=== PATIENT | female | born 1940 | race Caucasian/White ===

== ENCOUNTER 2018-01-12 06:03 | Inpatient (IN) | payer MEDICARE, OTHER ==
[2018-01-12] MEDS ORDERED: Acetaminophen 500 MG Tab PO ONE (06:45)
[2018-01-12] MEDS ORDERED: Succinylcholine 200 MG/10 ML MDV ONE (07:09)
[2018-01-12] MEDS ORDERED: Neostigmine Methylsulfate 1 MG/ML 5 ML Syringe ONE (07:09)
[2018-01-12] MEDS ORDERED: Dexamethasone 4 MG/ML SDV ONE (07:09)
[2018-01-12] MEDS ORDERED: Rocuronium 50 MG/5 ML Vial ONE (07:09)
[2018-01-12] MEDS ORDERED: Glycopyrrolate 0.2 MG/ML 5 ML MDV ONE (07:09)
[2018-01-12] MEDS ORDERED: Propofol 200 MG/20 ML SDV ONE (07:09)
[2018-01-12] MEDS ORDERED: Ondansetron 4 MG/2 ML SDV ONE (07:09)
[2018-01-12] MEDS ORDERED: fentaNYL 250 MCG/5 ML SDV ONE (07:09)
[2018-01-12] MEDS ORDERED: HYDROmorphone/Normal Saline 15 MG/30 ML PCA IV PRN ×2 (07:23→08:54)
[2018-01-12] MEDS ORDERED: Naloxone 0.4 MG/ML SDV IVPUSH PRN (07:23)
[2018-01-12] MEDS ORDERED: Naloxone 0.4 MG/ML SDV IV PRN (07:27)
[2018-01-12] MEDS ORDERED: Dextrose 5%-Lactated Ringers 1,000 ML IV SCH ×2 (07:30→12:15)
[2018-01-12] MEDS ORDERED: ceFAZolin 1 GM in Premix Bag 1 BAG IV ONE (08:00)
[2018-01-12] MEDS ORDERED: ceFAZolin 1 GM in Sodium Chloride 0.9% 50 ML IV ONE (08:00)
[2018-01-12] MEDS ORDERED: Hydrocortisone Sodium Succinate 100 MG/2 ML SDV IVPUSH ONE (08:00)
[2018-01-12] MEDS ORDERED: Methimazole 5 MG Tab PO ONE (09:00)
[2018-01-12] MEDS ORDERED: Ondansetron 4 MG/2 ML SDV IVPUSH PRN (12:13)
[2018-01-12] MEDS: Pantoprazole 40 MG Tab.CR PO SCH (15:54)
[2018-01-12] MEDS: Dextrose 5%-Lactated Ringers 1,000 ML IV SCH (15:55)
[2018-01-12] MEDS: Hydrocortisone Sodium Succinate 100 MG/2 ML SDV IV SCH (15:55)
[2018-01-12] MEDS: ceFAZolin 1 GM in Premix Bag 1 BAG IV SCH (15:56)
[2018-01-12] MEDS ORDERED: Benzocaine 20% Top Spray 56 GM Bottle TOP SCH (19:30)
[2018-01-12] MEDS: Diltiazem 120 MG Cap.CD PO SCH (20:15)
[2018-01-12] MEDS: Metoprolol Tartrate 50 MG Tab PO SCH (20:15)
[2018-01-12] MEDS ORDERED: Phenol/Sodium Phenolate Spray 180 ML Bottle PO SCH (20:15)
[2018-01-12] MEDS: Benzocaine/Cetylpyridinium/Menthol Lozenge MUCMEM SCH ×2 (21:31→22:35)
[2018-01-13] MEDS: Dextrose 5%-Lactated Ringers 1,000 ML IV SCH ×3 (00:04→21:20)
[2018-01-13] MEDS: ceFAZolin 1 GM in Premix Bag 1 BAG IV SCH ×2 (00:05→08:20)
[2018-01-13] MEDS: Hydrocortisone Sodium Succinate 100 MG/2 ML SDV IV SCH ×4 (00:06→23:53)
[2018-01-13] MEDS ORDERED: HYDROmorphone 2 MG Tab PO PRN (07:48)
[2018-01-13] MEDS: Metoprolol Tartrate 50 MG Tab PO SCH ×2 (08:22→21:15)
[2018-01-13] MEDS: Aspirin 81 MG Tab.EC PO SCH (08:22)
[2018-01-13] MEDS: Apixaban 5 MG Tab PO SCH ×2 (08:23→21:14)
[2018-01-13] MEDS: Magnesium Sulfate/Water 2 GM in Premix Bag 1 BAG IV SCH ×3 (09:45→21:15)
--- NOTE | 2018-01-13 09:53 | PN ---
DATE OF SERVICE: 01/13/2018 SUBJECTIVE: Barbara is postop day #1. She states her pain is controlled. Vital signs have been stable. She has been up ambulating. REVIEW OF SYSTEMS: Remainder of review of systems negative for any pertinent positives and negatives. OBJECTIVE: GENERAL: Barbara Garcia is a pleasant 77-year-old female. VITAL SIGNS: TPR is 98.5, 61, 18, and blood pressure 124/49. HEENT: Negative. NECK: Dressings dry and intact. Incision looks good. Her voice is strong. HEART: Regular rate and rhythm. LUNGS: Clear. ABDOMEN: Nondistended. EXTREMITIES: Without peripheral edema. ASSESSMENT: Left thyroid lobectomy and right subtotal thyroid lobectomy for diffuse toxic goiter. Date of surgery, 01/12/2018. PLAN: 1. Regular diet. 2. Tylenol 640 mg q.4 hours p.r.n. pain. 3. Dilaudid 2 mg 1 to 2 p.o. every 4 hours p.r.n. pain. 4. Magnesium 2 grams IV q.6 hours x72 hours. 5. Discontinue [employer] and continuous pulse ox, and telemetry. 6. We will evaluate p.r.n. or in a.m. Barbi Bolden PA-C /[id number]
[2018-01-13] MEDS: Pantoprazole 40 MG Tab.CR PO SCH (17:04)
[2018-01-13] MEDS: Diltiazem 120 MG Cap.CD PO SCH (21:14)
[2018-01-14] MEDS: Magnesium Sulfate/Water 2 GM in Premix Bag 1 BAG IV SCH ×4 (04:14→21:03)
[2018-01-14] MEDS ORDERED: Sodium Chloride 0.9% 10 ML Syringe IV PRN (07:38)
[2018-01-14] MEDS: Metoprolol Tartrate 50 MG Tab PO SCH ×3 (08:07→20:52)
[2018-01-14] MEDS: Hydrocortisone Sodium Succinate 100 MG/2 ML SDV IV SCH ×3 (08:07→23:56)
[2018-01-14] MEDS: Apixaban 5 MG Tab PO SCH ×2 (08:07→21:03)
[2018-01-14] MEDS: Aspirin 81 MG Tab.EC PO SCH (08:07)
[2018-01-14] MEDS: Calcium Carbonate 500 MG Tab.Chew PO SCH ×3 (10:34→21:03)
--- NOTE | 2018-01-14 13:39 | PCM.CONS ---
H&P History of Present Illness - General Date of Service: 01/14/18 Admit Problem/Dx: Admission Diagnosis/Problem Admission Diagnosis/Problem Thyroidectomy Source of Information: Patient, Family, RN History Limitations: Reports: No Limitations - History of Present Illness Initial Comments - Free Text/Narative: Barbara had surgery 2 days ago for a subtotal thyroidectomy. I was asked to see her today regarding atrial fibrillation with rapid ventricular response. She noted sudden onset of palpitations, headache, neck stiffness and anxiety while she was eating lunch today. Her vital signs were checked and she was noted to have an irregular tachycardic pulse. She feels some slight chest tightness but does not feel short of breath. She does not endorse chest pain. She has a history of paroxysmal atrial fibrillation and this feels like previous episodes. She had otherwise been doing well following her thyroid surgery 2 days ago. She has minimal pain in her neck. She has been up and walking around. She has not had any fevers. She does report mild lower extremity edema. Headache Pain Score (Numeric/FACES): 4 - Related Data Allergies/Adverse Reactions: Allergies Allergy/AdvReac Type Severity Reaction Status Date / Time Penicillins Allergy Rash Verified 01/09/18 08:38 Home Medications: Home Meds Apixaban [Eliquis] 5 mg PO BID 01/09/18 [History] Calcium Carbonate 1,500 mg PO DAILY 01/09/18 [History] Diltiazem [Cardizem] 180 mg PO DAILY 01/09/18 [History] Magnesium 30 mg PO DAILY 01/09/18 [History] Metoprolol Tartrate [Lopressor] 50 mg PO BID 01/09/18 [History] Multivitamin with Minerals [Multiple Vitamin] 1 tab PO DAILY 01/09/18 [History] Omeprazole Magnesium [Prilosec Otc] 20 mg PO DAILY 01/09/18 [History] Vitamin B Complex [B Complex] 1 tab PO DAILY 01/09/18 [History] Diltiazem HCl [Cardizem] 120 mg PO ASDIRECTED PRN 01/12/18 [History] Past Medical History HEENT History: Reports: Hard of Hearing, Impaired Vision Cardiovascular History: Reports: Afib, Hypertension Respiratory History: Reports: Sleep Apnea Gastrointestinal History: Reports: GERD Genitourinary History: Reports: None LOADER History: Reports: Musculoskeletal History: Reports: Arthritis, Neck Pain, Chronic Neurological History: Reports: CVA, Headaches, Chronic, Vertigo Endocrine/Metabolic History: Reports: Hyperthyroidism - Infectious Disease History Infectious Disease History: Reports: Chicken Pox, Measles, Mumps - Past Surgical History HEENT Surgical History: Reports: None Cardiovascular Surgical History: Reports: Cardiac Ablation Respiratory Surgical History: Reports: None GI Surgical History: Reports: Appendectomy, Colonoscopy Female Surgical History: Reports: Breast Biopsy, Tubal Ligation Endocrine Surgical History: Reports: None Neurological Surgical History: Reports: None Musculoskeletal Surgical History: Reports: Knee Replacement Dermatological Surgical History: Reports: None Social & Family History - Family History Family Medical History: Noncontributory - Tobacco Use Smoking Status *Q: Never Smoker Second Hand Smoke Exposure: No - Caffeine Use Caffeine Use: Reports: None - Alcohol Use Alcohol Use History: No - Recreational Drug Use Recreational Drug Use: No H&P Review of Systems - Review of Systems: Review Of Systems: See Below Free Text/Narrative: A complete 12 point review of systems was obtained. Pertinent positives and negatives are noted in the history of present illness. All other systems were reviewed and were negative except as noted. Exam - Exam Exam: See Below - Vital Signs Vital Signs: Last Vital Signs Temp 36.4 C 01/14/18 11:06 Pulse 130 H 01/14/18 13:00 Resp 18 01/14/18 13:00 BP 140/80 01/14/18 13:00 Pulse Ox 95 01/14/18 13:00 Weight: 103.022 kg - Exam Quality Assessment: No: Supplemental Oxygen General: Alert, Oriented, Cooperative, Mild Distress HEENT: Conjunctiva Clear, Mucosa Moist & Pentress. No: Scleral Icterus Neck: Supple, Trachea Midline Lungs: Clear to Auscultation, Normal Respiratory Effort Cardiovascular: Irregular Rhythm, Tachycardia. No: Systolic Murmur GI/Abdominal Exam: Normal Bowel Sounds, Soft, No Distention Extremities: Pedal Edema (mild pitting bilateral edema to lower 1/3 of the leo) . No: Increased Warmth Skin: Warm, Dry Neuro Extensive - Mental Status: Alert, Oriented x3, Nl Response to Commands Neuro Extensive - Motor, Sensory, Reflexes: CN II-XII Intact. No: Dysarthria, Abnormal Motor Psychiatric: Alert, Anxious - Patient Data Lab Results Last 24 hrs: Laboratory Results - last 24 hr 01/14/18 Range/Units 04:37 Sodium 144 (140-148) mmol/L Potassium 3.7 (3.6-5.2) mmol/L Chloride 110 H (100-108) mmol/L Carbon Dioxide 25 (21-32) mmol/L Anion Gap 12.7 (5.0-14.0) mmol/L BUN 19 H (7-18) mg/dL Creatinine 0.8 (0.6-1.0) mg/dL Est Cr Clr Drug Dosing 59.64 mL/min Estimated GFR (MDRD) > 60 (>60) Glucose 151 H (74-106) mg/dL Calcium 7.0 L (8.5-10.1) mg/dL Phosphorus 4.5 (2.5-4.9) mg/dL Magnesium 2.2 D (1.8-2.4) mg/dL Result Diagrams: 01/12/18 07:00 01/14/18 04:37 Consult PN Assessment/Plan POD#: 2 Procedures: Procedures BLOOD TYPING SEROLOGIC ABO (03/21/14) BLOOD TYPING SEROLOGIC RH(D) (03/21/14) RBC ANTIBODY SCREEN (03/21/14) ROUTINE VENIPUNCTURE (03/21/14) US EXAM OF HEAD AND NECK (01/03/18) (1) Paroxysmal atrial fibrillation with RVR SNOMED Code(s): 792688490, 211805828890540 Code(s): I48.0 - PAROXYSMAL ATRIAL FIBRILLATION Current Visit: Yes (2) Status post total thyroidectomy SNOMED Code(s): 724464440, 417575819 Code(s): E89.0 - POSTPROCEDURAL HYPOTHYROIDISM Current Visit: Yes Problem List Initiated/Reviewed/Updated: Yes My Orders Last 24 Hours: My Active Orders 01/14/18 13:35 Transfer Patient (Change bed) [ADT] Routine 01/14/18 13:36 Diltiazem 10 mg IVPUSH ONETIME ONE 01/14/18 13:37 Vital Signs [RC] Q1H 01/14/18 13:45 Diltiazem 125MG in D5W @ 5 MG/HR(125ml) Diltiazem 125 mg Dextrose 5% in Water 100 ml IV TITRATE Plan: ASSESSMENT AND PLAN Paroxysmal atrial fibrillation with rapid ventricular response - symptoms include palpitations, chest tightness, anxiety and neck tightness. Similar to previous episodes. She does have a history of atrial fibrillation and is systemically anticoagulated. Blood pressure stable at this time. She does have a history of bradycardia with diltiazem titration. electrolytes are acceptable. -Transfer to the intensive care unit and initiate diltiazem infusion after diltiazem bolus -Discontinue long-acting diltiazem for now until medications can be titrated -cardiac monitoring -Repeat electrolytes in the morning -Transition back to oral medications once we achieve better rate control or she has converted back to sinus rhythm Status post subtotal thyroidectomy for toxic multinodular goiter - doing well from a surgical standpoint with minimal pain. Mark Kovacs MD Requesting Provider: Dr Andrade Date Consult Requested: 01/14/18 Reason for Consult: afib with RVR Patient History Reviewed: Yes Admission H&P Reviewed: Yes Notified Requestor: No Time Spent (in minutes): 50
[2018-01-14] MEDS ORDERED: Diltiazem 25 MG/5 ML SDV IVPUSH ONE (13:45)
[2018-01-14] MEDS: Pantoprazole 40 MG Tab.CR PO SCH (16:09)
[2018-01-14] MEDS: LORazepam 0.5 MG Tab PO PRN (16:29)
[2018-01-14] MEDS: Acetaminophen 160 MG Tab,Disintegrating PO PRN (19:21)
[2018-01-15] MEDS ORDERED: Bisacodyl 10 MG Supp RECTAL ONE (02:01)
[2018-01-15] MEDS: Magnesium Sulfate/Water 2 GM in Premix Bag 1 BAG IV SCH ×4 (02:31→21:18)
[2018-01-15] MEDS: Calcium Carbonate 500 MG Tab.Chew PO SCH ×4 (05:03→21:18)
[2018-01-15] MEDS: LORazepam 0.5 MG Tab PO PRN (06:20)
[2018-01-15] MEDS: Potassium Acetate 20 MEQ, Lidocaine 1% 2 ML in Sodium Chloride 0.9% 100 ML IV SCH ×4 (08:05→17:16)
[2018-01-15] MEDS: Hydrocortisone Sodium Succinate 100 MG/2 ML SDV IV SCH ×3 (08:08→23:30)
[2018-01-15] MEDS: Aspirin 81 MG Tab.EC PO SCH (08:09)
[2018-01-15] MEDS: Apixaban 5 MG Tab PO SCH ×2 (08:09→20:18)
[2018-01-15] MEDS: Metoprolol Tartrate 50 MG Tab PO SCH ×2 (08:10→20:18)
--- NOTE | 2018-01-15 09:17 | PCM.CONSN ---
- General Info Date of Service: 01/15/18 Functional Status: Reports: Pain Controlled, Tolerating Diet - Review of Systems Cardiovascular: Denies: Chest Pain Systems Review Comment:: Overnight the patient had difficulty with the sensation of needing to have a bowel movement and was successful with a suppository. She converted to normal sinus rhythm with the diltiazem infusion and this has been discontinued. She feels a little tired today but otherwise feels back to her usual self. She does not have any chest pain or tightness. Potassium and calcium were both noted to be low this morning. - Patient Data Vitals - Most Recent: Last Vital Signs Temp 36.8 C 01/15/18 07:00 Pulse 59 L 01/15/18 08:10 Resp 18 01/15/18 07:00 BP 119/43 L 01/15/18 08:10 Pulse Ox 95 01/15/18 07:00 Weight - Most Recent: 103.022 kg I&O - Last 24 Hours: Intake & Output 01/14/18 01/15/18 01/15/18 22:59 06:59 14:59 Intake Total 526 1060 Output Total 800 Balance -274 1060 Lab Results Last 24 Hours: Laboratory Results - last 24 hr 01/15/18 01/15/18 Range/Units 05:06 05:30 Sodium 142 (140-148) mmol/L Potassium 2.9 L* (3.6-5.2) mmol/L Chloride 107 (100-108) mmol/L Carbon Dioxide 24 (21-32) mmol/L Anion Gap 13.9 (5.0-14.0) mmol/L BUN 17 (7-18) mg/dL Creatinine 0.8 (0.6-1.0) mg/dL Est Cr Clr Drug Dosing 59.64 mL/min Estimated GFR (MDRD) > 60 (>60) Glucose 114 H (74-106) mg/dL Calcium 6.5 L* (8.5-10.1) mg/dL Phosphorus 4.6 (2.5-4.9) mg/dL Magnesium 2.8 H D (1.8-2.4) mg/dL NT-Pro-B Natriuret Pep 3456 H (5-450) pg/mL Med Orders - Current: Current Medications Acetaminophen (Tylenol Jr. Meltaways) 640 mg PO Q4H PRN PRN Reason: Pain Last Admin: 01/14/18 19:21 Dose: 640 mg Apixaban (Eliquis) 5 mg PO BID [facility] Last Admin: 01/15/18 08:09 Dose: 5 mg Aspirin (Halfprin) 81 mg PO DAILY [facility] Last Admin: 01/15/18 08:09 Dose: 81 mg Calcium Carbonate/Glycine (Tums) 2,000 mg PO QID [facility] Hydrocortisone Sodium Succinate (Solu-Cortef) 50 mg IV Q8H [facility] Last Admin: 01/15/18 08:08 Dose: 50 mg Hydromorphone HCl (Dilaudid) 2 - 4 mg PO Q4H PRN PRN Reason: Pain Magnesium Sulfate 2 gm/ Premix 50 mls @ 25 mls/hr IV Q6H [facility] Stop: 01/16/18 04:59 Last Admin: 01/15/18 08:11 Dose: 25 mls/hr Potassium Acetate 20 meq/Lidocaine HCl 2 ml/ Sodium Chloride 112 mls @ 56 mls/ hr IV Q2H [facility] Stop: 01/15/18 16:29 Last Admin: 01/15/18 08:05 Dose: 56 mls/hr Lorazepam (Ativan) 0.5 mg PO Q4H PRN PRN Reason: Anxiety Last Admin: 01/15/18 06:20 Dose: 0.5 mg Metoprolol Tartrate (Lopressor) 50 mg PO BID [facility] Last Admin: 01/15/18 08:10 Dose: 50 mg Ondansetron HCl (Zofran) 4 mg IVPUSH Q4H PRN PRN Reason: NAUSEA Pantoprazole Sodium (Protonix) 40 mg PO Q24H [facility] Last Admin: 01/14/18 16:09 Dose: 40 mg Senna/Docusate Sodium (Senna Plus) 1 tab PO DAILY [facility] Last Admin: 01/15/18 08:07 Dose: 1 tab Sodium Chloride (Saline Flush) 10 ml IV ASDIRECTED PRN PRN Reason: LINE MAINTENCE Discontinued Medications Acetaminophen (Tylenol Extra Strength) 1,000 mg PO ONETIME ONE Stop: 01/12/18 06:46 Last Admin: 01/12/18 07:14 Dose: 1,000 mg Benzocaine/Menthol (Cepacol Sore Throat) 1 lozenge MUCMEM Q1H [facility] Last Admin: 01/12/18 22:35 Dose: Not Given Bisacodyl (Dulcolax) 10 mg RECTAL ONETIME ONE Stop: 01/15/18 02:02 Last Admin: 01/15/18 02:14 Dose: 10 mg Calcium Carbonate/Glycine (Tums) 1,000 mg PO QID [facility] Last Admin: 01/15/18 05:03 Dose: 1,000 mg Dexamethasone (Dexamethasone) Confirm Administered Dose 4 mg .ROUTE .STK-MED ONE Stop: 01/12/18 07:10 Diltiazem HCl (Cardizem Cd) 120 mg PO BEDTIME [facility] Last Admin: 01/13/18 21:14 Dose: 120 mg Diltiazem HCl (Diltiazem) 10 mg IVPUSH ONETIME ONE Stop: 01/14/18 13:46 Last Admin: 01/14/18 14:12 Dose: 10 mg Fentanyl (Sublimaze) Confirm Administered Dose 250 mcg .ROUTE .STK-MED ONE Stop: 01/12/18 07:10 Glycopyrrolate (Robinul) Confirm Administered Dose 1 mg .ROUTE .STK-MED ONE Stop: 01/12/18 07:10 Hydrocortisone Sodium Succinate (Solu-Cortef) 150 mg IVPUSH ONETIME ONE Stop: 01/12/18 08:01 Last Admin: 01/12/18 08:32 Dose: 150 mg Hydromorphone HCl (Dilaudid [employer] 15 Mg In Ns 30 Ml) 0 mg IV ASDIRECTED PRN; Protocol PRN Reason: Pain Last Admin: 01/12/18 09:11 Dose: 0.2 mg Dextrose/Lactated Ringer's (Dextrose 5%-Lactated Ringers) 1,000 mls @ 100 mls/ hr IV ASDIRECTED [facility] Last Admin: 01/12/18 08:20 Dose: 100 mls/hr Cefazolin Sodium/Dextrose 1 gm (/ Premix) 50 mls @ 100 mls/hr IV ONETIME ONE Stop: 01/12/18 08:29 Last Admin: 01/12/18 08:55 Dose: 100 mls/hr Dextrose/Lactated Ringer's (Dextrose 5%-Lactated Ringers) 1,000 mls @ 100 mls/ hr IV ASDIRECTED [facility] Last Admin: 01/13/18 21:20 Dose: 100 mls/hr Potassium Acetate 20 meq/ (Sodium Chloride) 110 mls @ 55 mls/hr IV Q2H [facility] Stop: 01/12/18 17:59 Last Admin: 01/12/18 15:56 Dose: 55 mls/hr Cefazolin Sodium/Dextrose 1 gm (/ Premix) 50 mls @ 100 mls/hr IV Q8H [facility] Stop: 01/13/18 08:29 Last Admin: 01/13/18 08:20 Dose: 100 mls/hr Diltiazem HCl 125 mg/ Dextrose (/Water) 125 mls @ 5 mls/hr IV TITRATE [facility]; Protocol Last Titration: 01/15/18 05:30 Dose: 0 mg/hr, 0 mls/hr Methimazole (Methimazole) 30 mg PO ONETIME ONE Stop: 01/12/18 09:01 Last Admin: 01/12/18 08:44 Dose: 30 mg Naloxone HCl (Narcan) 0.1 mg IV ASDIRECTED PRN PRN Reason: decreased respiratory rate Neostigmine Methylsulfate (Neostigmine) Confirm Administered Dose 5 mg .ROUTE .STK-MED ONE Stop: 01/12/18 07:10 Ondansetron HCl (Zofran) Confirm Administered Dose 4 mg .ROUTE .STK-MED ONE Stop: 01/12/18 07:10 Propofol (Diprivan 20 Ml) Confirm Administered Dose 200 mg .ROUTE .STK-MED ONE Stop: 01/12/18 07:10 Rocuronium [place] (Zemuron) Confirm Administered Dose 50 mg .ROUTE .STK-MED ONE Stop: 01/12/18 07:10 Succinylcholine Chloride (Quelicin) Confirm Administered Dose 200 mg .ROUTE .STK -MED ONE Stop: 01/12/18 07:10 - Exam Quality Assessment: No: Supplemental Oxygen General: Alert, Oriented, Cooperative, No Acute Distress Neck: Supple Lungs: Clear to Auscultation, Normal Respiratory Effort Cardiovascular: Regular Rate, Regular Rhythm, No Murmurs GI/Abdominal Exam: Soft, No Distention Extremities: Pedal Edema (mild pitting edema of both ankles). No: Increased Warmth Skin: Warm, Dry Psy/Mental Status: Alert, Normal Affect Consult PN Assessment/Plan POD#: 3 Procedures: Procedures BLOOD TYPING SEROLOGIC ABO (03/21/14) BLOOD TYPING SEROLOGIC RH(D) (03/21/14) RBC ANTIBODY SCREEN (03/21/14) ROUTINE VENIPUNCTURE (03/21/14) US EXAM OF HEAD AND NECK (01/03/18) (1) Paroxysmal atrial fibrillation with RVR SNOMED Code(s): 844331951, 501589952383673 Code(s): I48.0 - PAROXYSMAL ATRIAL FIBRILLATION Current Visit: Yes (2) Status post total thyroidectomy SNOMED Code(s): 194267461, 612577398 Code(s): E89.0 - POSTPROCEDURAL HYPOTHYROIDISM Current Visit: Yes Problem List Initiated/Reviewed/Updated: Yes My Orders Last 24 Hours: My Active Orders 01/14/18 13:35 Transfer Patient (Change bed) [ADT] Routine 01/14/18 13:37 Vital Signs [RC] Q4H 01/14/18 16:22 LORazepam [Ativan] 0.5 mg PO Q4H PRN 01/15/18 09:00 Docusate Sodium/Sennosides [Senna Plus] 1 tab PO DAILY 01/15/18 09:14 Transfer Patient (Change bed) [ADT] Routine 01/15/18 09:16 TAINA Hose [Antiembolic Hose] [OM.PC] Routine 01/15/18 09:30 Diltiazem IR [Cardizem] 30 mg PO Q6HR 01/15/18 21:00 Diltiazem [Cardizem] 180 mg PO BEDTIME Plan: ASSESSMENT AND PLAN Paroxysmal atrial fibrillation with rapid ventricular response - now back in sinus rhythm after diltiazem infusion. Planning to short acting throughout the day today before resuming her long-acting diltiazem this evening. Potassium is low and is being supplemented. She does have some mild lower extremity edema but I think her intravascular volume status appears appropriate. She will be resuming her long-acting diltiazem this evening. -Diltiazem 30 mg every 6 hours during the day today -Presumed diltiazem 180 mg this evening -cardiac monitoring -Optimize electrolytes -Continue beta cora -Continue systemic anticoagulation Status post subtotal thyroidectomy for toxic multinodular goiter - doing well from a surgical standpoint with minimal pain. Patient will be transferred out of the intensive care unit this morning. Assuming she remains in sinus rhythm and electrolytes are optimize she should be safe for discharge tomorrow. I don't believe we need to make any medication changes at the time of discharge. She can follow-up with her regular doctor early this week. Mark Kovacs MD
[2018-01-15] MEDS: Diltiazem IR 30 MG Tab PO SCH ×2 (09:34→15:09)
[2018-01-15] MEDS: Pantoprazole 40 MG Tab.CR PO SCH (16:42)
[2018-01-15] MEDS ORDERED: Magnesium Hydroxide 400 MG/5 ML Susp 30 ML Cup PO PRN (17:51)
[2018-01-15] MEDS ORDERED: DILTIAZEM 180 MG PO SCH (21:00)
[2018-01-15] MEDS ORDERED: Diltiazem 180 MG Cap.CD PO SCH (21:00)
[2018-01-16] MEDS: Magnesium Sulfate/Water 2 GM in Premix Bag 1 BAG IV SCH (02:00)
[2018-01-16] MEDS: Calcium Carbonate 500 MG Tab.Chew PO SCH ×4 (05:13→21:22)
[2018-01-16] MEDS: Hydrocortisone Sodium Succinate 100 MG/2 ML SDV IV SCH ×2 (08:07→16:47)
[2018-01-16] MEDS: Metoprolol Tartrate 50 MG Tab PO SCH ×2 (08:07→21:49)
[2018-01-16] MEDS: Aspirin 81 MG Tab.EC PO SCH (08:07)
[2018-01-16] MEDS: Apixaban 5 MG Tab PO SCH ×2 (08:08→20:54)
--- NOTE | 2018-01-16 08:11 | PN ---
DATE OF SERVICE: 01/14/2018 The patient has been afebrile with stable vital signs. Her calcium is down at 7.0 but she is not symptomatic with that. I think we will start her on some TUMS 2 tablets q.i.d.; otherwise, oral intake is good and we will saline lock her IV. Otherwise, continue the magnesium supplementation. Assuming the calcium is stabilized with the addition of the TUMS, we will likely have her discharged home tomorrow. Rinku Andrade MD /[id number]
--- NOTE | 2018-01-16 09:05 | PN ---
DATE OF SERVICE: 01/16/2018 SUBJECTIVE: Barbara is having some low-potassium symptoms with her hand on the side they are taking the blood pressure. Labs this morning revealed that her potassium is up to 3.9, calcium is 5.8, BNP is 1277, and vitamin D is 36.1 with normal being 30 to 100. Vital signs have been stable with a pulse of 65, blood pressure 152/80, and temp max is 99.3. Pain has been controlled. REVIEW OF SYSTEMS: Remainder of review of systems negative for any pertinent positives and negatives. OBJECTIVE: GENERAL: Barbara Garcia is a pleasant 77-year-old female. She is alert and orientated, sitting up in the chair. VITAL SIGNS: TPR is 99, 65, 18, and blood pressure 152/80. HEENT: Negative. NECK: Steri-Strips in place. Incision looks good. HEART: Regular rate and rhythm. LUNGS: Clear. ABDOMEN: Negative. EXTREMITIES: Without peripheral edema. ASSESSMENT: 1. 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 Date of surgery, 01/12/2018. Postoperative day #4. 2. Paroxysmal atrial fibrillation with rapid ventricular response. PLAN: 1. Increase diltiazem to 240 mg p.o. 2. Calcium citrate 500 mg q.6 hours. [facility] was called in regard to obtaining the calcium citrate. 3. Vitamin D 50,000 international units p.o. t.i.d. 4. Labs are already ordered and will be rechecked in a.m. 5. Good pulmonary toilet. 6. We will evaluate p.r.n. or in a.m. Barbi Bolden PA-C /[id number]
[2018-01-16] MEDS: Cholecalciferol (Vitamin D3) 50,000 Unit Cap PO SCH ×2 (14:43→20:54)
[2018-01-16] MEDS: Pantoprazole 40 MG Tab.CR PO SCH (16:48)
[2018-01-16] MEDS ORDERED: Calcium Gluconate 11 GM in Sodium Chloride 0.9% 1,000 ML IV ONE (19:35)
[2018-01-16] MEDS: Diltiazem 120 MG Cap.CD PO SCH (21:50)
[2018-01-17] MEDS: Hydrocortisone Sodium Succinate 100 MG/2 ML SDV IV SCH (00:47)
[2018-01-17] MEDS: LORazepam 0.5 MG Tab PO PRN (03:26)
[2018-01-17] MEDS: Calcium Carbonate 500 MG Tab.Chew PO SCH ×4 (06:12→21:57)
[2018-01-17] MEDS: Acetaminophen 160 MG Tab,Disintegrating PO PRN (06:12)
[2018-01-17] MEDS ORDERED: Furosemide 20 MG/2 ML VIAL IVPUSH ONE (07:10)
[2018-01-17] MEDS: Aspirin 81 MG Tab.EC PO SCH (08:23)
[2018-01-17] MEDS: predniSONE 1 MG Tab PO SCH (08:44)
[2018-01-17] MEDS: Metoprolol Tartrate 50 MG Tab PO SCH ×2 (08:45→21:58)
[2018-01-17] MEDS: Apixaban 5 MG Tab PO SCH ×2 (08:45→21:58)
[2018-01-17] MEDS: Hydrochlorothiazide 25 MG Tab PO SCH (08:45)
--- NOTE | 2018-01-17 10:13 | PN ---
DATE OF SERVICE: 01/17/2018 SUBJECTIVE: Barbara had symptomatic hypokalemia, last evening, calcium at 0400 hours was 5.8 and at 1600 hours was 6.3. This morning her calcium is 7.1. She was started on calcium gluconate IV at 50 mL per hour, and her symptoms did improve. This morning, she states she is feeling better. The BNP did elevate a little bit from 1277 to 1811. REVIEW OF SYSTEMS: Otherwise negative for any pertinent positives and negatives. OBJECTIVE: GENERAL: Barbara Garcia is a pleasant 77-year-old female. VITAL SIGNS: TPR is 98.2, 46, 16, and blood pressure is 149/68. HEENT: Negative. NECK: Supple. HEART: Regular rate and rhythm. LUNGS: Clear. NECK: Steri-Strips intact. Incision looks good. ABDOMEN: Soft and nontender. EXTREMITIES: Trace peripheral edema in upper and lower extremities. ASSESSMENT: 1. Hypokalemia. 2. Paroxysmal atrial fibrillation with rapid ventricular response, resolved. 3. 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 Date of surgery, 01/12/2018. PLAN: 1. Lasix 20 mg IV stat. 2. Vitamin D 50,000 p.o. daily. Discontinue t.i.d. dosing. 3. Calcium gluconate IV. Decrease dose to 25 mL per hour. Check calcium serum level at noon. Call Rinku Andrade MD, with results. 4. Check CMP, mag, phos, and BNP at 1700 hours. Call Rinku Andrade MD, with results. 5. Discontinue Solu-Medrol. 6. Prednisone 2 mg p.o. daily. 7. Start the Citracal t.i.d. It will be in today per Pharmacy. 8. Check CMP, CBC, mag, phos, and BNP in a.m. 9. Hydrochlorothiazide 25 mg p.o. daily. 10.We will evaluate p.r.n. or in a.m. Barbi Bolden PA-C /[id number]
[2018-01-17] MEDS: Cholecalciferol (Vitamin D3) 50,000 Unit Cap PO SCH (10:53)
[2018-01-17] MEDS: Calcium Citrate/Vitamin D3 315 MG-250 Unit Tab PO SCH ×4 (10:54→21:57)
[2018-01-17] MEDS ORDERED: SODIUM CHLORIDE 0.9% IV SCH ×4 (14:00)
[2018-01-17] MEDS ORDERED: CALCIUM GLUCONATE IV SCH ×4 (14:00)
[2018-01-17] MEDS: Pantoprazole 40 MG Tab.CR PO SCH (16:19)
[2018-01-17] MEDS: Magnesium Sulfate/Water 2 GM in Premix Bag 1 BAG IV SCH (18:54)
[2018-01-17] MEDS: Diltiazem 120 MG Cap.CD PO SCH (21:57)
[2018-01-18] MEDS: Magnesium Sulfate/Water 2 GM in Premix Bag 1 BAG IV SCH ×5 (00:50→23:30)
[2018-01-18] MEDS: Acetaminophen 160 MG Tab,Disintegrating PO PRN (03:31)
[2018-01-18] MEDS: LORazepam 0.5 MG Tab PO PRN (06:35)
[2018-01-18] MEDS: Calcium Carbonate 500 MG Tab.Chew PO SCH ×4 (06:36→20:33)
[2018-01-18] MEDS: predniSONE 1 MG Tab PO SCH (08:05)
[2018-01-18] MEDS: Calcium Citrate/Vitamin D3 315 MG-250 Unit Tab PO SCH ×2 (08:05→15:19)
[2018-01-18] MEDS: Aspirin 81 MG Tab.EC PO SCH (08:06)
[2018-01-18] MEDS: Hydrochlorothiazide 25 MG Tab PO SCH (08:06)
[2018-01-18] MEDS: Metoprolol Tartrate 50 MG Tab PO SCH (08:06)
[2018-01-18] MEDS: Apixaban 5 MG Tab PO SCH ×2 (08:06→20:33)
[2018-01-18] MEDS: Cholecalciferol (Vitamin D3) 50,000 Unit Cap PO SCH (08:10)
[2018-01-18] MEDS ORDERED: Furosemide 20 MG/2 ML VIAL IVPUSH ONE (08:30)
--- NOTE | 2018-01-18 08:57 | PN ---
DATE OF SERVICE: 01/18/2018 SUBJECTIVE: Barbara's calcium is 7.3 this morning. Her BNP is 1152. She is having some episodes, where she feels like she is going to pass out. Vital signs revealed a pulse of 43 to 58. Her blood pressure has been running 130 to 154/64 to 68. Pain is controlled. REVIEW OF SYSTEMS: Remainder of review of systems negative for any pertinent positives and negatives. OBJECTIVE: GENERAL: Barbara Garcia is a 77-year-old female. NECK: Incision looks good. Steri-Strips are on. It is healing well. Supple. HEENT: Negative. HEART: Regular rate and rhythm. LUNGS: Clear. ABDOMEN: Negative. EXTREMITIES: Revealed trace peripheral edema. ASSESSMENT: 1. Low calcium. 2. Hypokalemia. 3. Paroxysmal atrial fibrillation with rapid ventricular response, resolved. 4. Left thyroid lobectomy and right subtotal thyroid lobectomy for diffuse toxic ulcer. Date of surgery, 01/12/2018. 5. Microscopic papillary carcinoma. PLAN: 1. Check serum calcium level at 1700 hours. 2. Check CBC, CMP, mag, phos, and BNP at 0400 hours, on 01/19/2018. 3. Lasix 20 mg IV this a.m. 4. Decrease diltiazem (Cardizem) to 180 mg p.o. daily. 5. Check orthostatic sitting, standing, and lying blood pressures per protocol 4 times daily. 6. We will evaluate p.r.n. or in a.m. Barbi Bolden PA-C /[id number]
--- NOTE | 2018-01-18 12:29 | PN ---
DATE OF SERVICE: 01/15/2018 The patient developed atrial fibrillation with a rapid response yesterday along with some chest tightness. She was put on a diltiazem infusion and early this morning converted back to a sinus rhythm with some degree of bradycardia, which is her baseline. Otherwise, from a surgical standpoint, the patient is noted to be doing well. Incision is clean. Oral intake was around 1000 mL yesterday. Electrolytes show potassium to be quite low at 2.9 this morning. Her chloride is 107 and phosphate 4.6, while carbon dioxide is 24, for replacement. Otherwise, the diltiazem will be titrated back to some oral version, per Dr. Kovacs, over the next day or so. Rinku Andrade MD /[id number]
--- NOTE | 2018-01-18 14:03 | PCM.PN ---
- General Info Date of Service: 01/18/18 Functional Status: Reports: Pain Controlled - Review of Systems General: Reports: Weakness, Fatigue HEENT: Reports: No Symptoms Pulmonary: Reports: Shortness of Breath Cardiovascular: Reports: Palpitations, Dyspnea on Exertion Gastrointestinal: Reports: No Symptoms Genitourinary: Reports: No Symptoms Musculoskeletal: Reports: No Symptoms Skin: Reports: No Symptoms Neurological: Reports: Weakness Psychiatric: Reports: No Symptoms - Patient Data Vitals - Most Recent: Last Vital Signs Temp 99.2 F 01/18/18 11:26 Pulse 40 L 01/18/18 11:26 Resp 18 01/18/18 11:26 BP 130/64 01/18/18 08:06 Pulse Ox 93 L 01/18/18 11:26 Orthostatic Blood Pressure [ 141/64 Standing] Orthostatic Blood Pressure [ 135/57 Sitting] Orthostatic Blood Pressure [ 118/50 Supine] Weight - Most Recent: 227 lb 1.994 oz I&O - Last 24 Hours: Intake & Output 01/17/18 01/18/18 01/18/18 22:59 06:59 14:59 Intake Total 55 440 50 Output Total 900 1500 Balance 41 -506 -6077 Lab Results Last 24 Hours: Laboratory Results - last 24 hr 01/17/18 01/18/18 01/18/18 Range/Units 16:57 04:20 04:20 WBC 9.6 (4.5-11.0) K/uL RBC 3.77 (3.30-5.50) M/uL Hgb 11.1 L (12.0-15.0) g/dL Hct 32.7 L (36.0-48.0) % MCV 87 (80-98) fL MCH 29 (27-31) pg MCHC 34 (32-36) % Plt Count 162 (150-400) K/uL Sodium 141 139 L (140-148) mmol/L Potassium 3.6 3.7 (3.6-5.2) mmol/L Chloride 105 104 (100-108) mmol/L Carbon Dioxide 27 27 (21-32) mmol/L Anion Gap 8.7 11.7 (5.0-14.0) mmol/L BUN 16 15 (7-18) mg/dL Creatinine 1.0 0.8 (0.6-1.0) mg/dL Est Cr Clr Drug Dosing 47.71 59.64 mL/min Estimated GFR (MDRD) 54 L > 60 (>60) Glucose 97 89 (74-106) mg/dL Calcium 7.6 L 7.3 L (8.5-10.1) mg/dL Phosphorus 5.8 H 6.8 H (2.5-4.9) mg/dL Magnesium 1.7 L (1.8-2.4) mg/dL Total Bilirubin 0.8 0.7 (0.2-1.0) mg/dL AST 24 20 (15-37) U/L ALT 44 38 (12-78) U/L Alkaline Phosphatase 72 62 (46-116) U/L NT-Pro-B Natriuret Pep 1694 H 1152 H (5-450) pg/mL Total Protein 5.6 L 5.0 L (6.4-8.2) g/dL Albumin 2.6 L 2.3 L (3.4-5.0) g/dL Globulin 3.0 2.7 (2.3-3.5) g/dL Albumin/Globulin Ratio 0.9 L 0.9 L (1.2-2.2) Med Orders - Current: Current Medications Acetaminophen (Tylenol Jr. Meltaways) 640 mg PO Q4H PRN PRN Reason: Pain Last Admin: 01/18/18 03:31 Dose: 640 mg Apixaban (Eliquis) 5 mg PO BID [facility] Last Admin: 01/18/18 08:06 Dose: 5 mg Aspirin (Halfprin) 81 mg PO DAILY [facility] Last Admin: 01/18/18 08:06 Dose: 81 mg Calcium Carbonate/Glycine (Tums) 2,000 mg PO QID [facility] Last Admin: 01/18/18 11:03 Dose: 2,000 mg Calcium Citrate (Calcium Citrate + D) 1 tab PO TID [facility] Last Admin: 01/18/18 08:05 Dose: 1 tab Cholecalciferol (Vitamin D3) 50,000 unit PO DAILY [facility] Last Admin: 01/18/18 08:10 Dose: 50,000 unit Diltiazem HCl (Cardizem Cd) 180 mg PO BEDTIME [facility] Hydrochlorothiazide (Hydrochlorothiazide) 25 mg PO DAILY [facility] Last Admin: 01/18/18 08:06 Dose: 25 mg Hydromorphone HCl (Dilaudid) 2 - 4 mg PO Q4H PRN PRN Reason: Pain Magnesium Sulfate 2 gm/ Premix 50 mls @ 12.5 mls/hr IV Q6H [facility] Stop: 01/19/18 15:59 Last Admin: 01/18/18 11:03 Dose: 12.5 mls/hr Lorazepam (Ativan) 0.5 mg PO Q4H PRN PRN Reason: Anxiety Last Admin: 01/18/18 06:35 Dose: 0.5 mg Magnesium Hydroxide (Milk Of Magnesia) 30 ml PO BID PRN PRN Reason: Constipation Last Admin: 01/15/18 18:38 Dose: 30 ml Ondansetron HCl (Zofran) 4 mg IVPUSH Q4H PRN PRN Reason: NAUSEA Pantoprazole Sodium (Protonix) 40 mg PO Q24H [facility] Last Admin: 01/17/18 16:19 Dose: 40 mg Prednisone (Prednisone) 2 mg PO WITHBREAKFAST [facility] Last Admin: 01/18/18 08:05 Dose: 2 mg Senna/Docusate Sodium (Senna Plus) 1 tab PO DAILY [facility] Last Admin: 01/18/18 08:06 Dose: 1 tab Sodium Chloride (Saline Flush) 10 ml IV ASDIRECTED PRN PRN Reason: LINE MAINTENCE Discontinued Medications Acetaminophen (Tylenol Extra Strength) 1,000 mg PO ONETIME ONE Stop: 01/12/18 06:46 Last Admin: 01/12/18 07:14 Dose: 1,000 mg Benzocaine/Menthol (Cepacol Sore Throat) 1 lozenge MUCMEM Q1H [facility] Last Admin: 01/12/18 22:35 Dose: Not Given Bisacodyl (Dulcolax) 10 mg RECTAL ONETIME ONE Stop: 01/15/18 02:02 Last Admin: 01/15/18 02:14 Dose: 10 mg Calcium Carbonate/Glycine (Tums) 1,000 mg PO QID [facility] Last Admin: 01/15/18 05:03 Dose: 1,000 mg Cholecalciferol (Vitamin D3) 50,000 unit PO TID [facility] Last Admin: 01/16/18 20:54 Dose: 50,000 unit Dexamethasone (Dexamethasone) Confirm Administered Dose 4 mg .ROUTE .STK-MED ONE Stop: 01/12/18 07:10 Diltiazem HCl (Cardizem Cd) 120 mg PO BEDTIME [facility] Last Admin: 01/13/18 21:14 Dose: 120 mg Diltiazem HCl (Diltiazem) 10 mg IVPUSH ONETIME ONE Stop: 01/14/18 13:46 Last Admin: 01/14/18 14:12 Dose: 10 mg Diltiazem HCl (Cardizem) 30 mg PO Q6H [facility] Stop: 01/15/18 15:31 Last Admin: 01/15/18 15:09 Dose: 30 mg Diltiazem HCl (Cardizem Cd) 180 mg PO BEDTIME [facility] Last Admin: 01/15/18 20:18 Dose: 180 mg Diltiazem HCl (Cardizem Cd) 240 mg PO BEDTIME [facility] Last Admin: 01/17/18 21:57 Dose: 240 mg Fentanyl (Sublimaze) Confirm Administered Dose 250 mcg .ROUTE .STK-MED ONE Stop: 01/12/18 07:10 Furosemide (Lasix) 20 mg IVPUSH ONETIME ONE Stop: 01/17/18 07:11 Last Admin: 01/17/18 08:22 Dose: 20 mg Furosemide (Lasix) 20 mg IVPUSH ONETIME ONE Stop: 01/18/18 08:31 Last Admin: 01/18/18 08:55 Dose: 20 mg Glycopyrrolate (Robinul) Confirm Administered Dose 1 mg .ROUTE .STK-MED ONE Stop: 01/12/18 07:10 Hydrocortisone Sodium Succinate (Solu-Cortef) 150 mg IVPUSH ONETIME ONE Stop: 01/12/18 08:01 Last Admin: 01/12/18 08:32 Dose: 150 mg Hydrocortisone Sodium Succinate (Solu-Cortef) 50 mg IV Q8H [facility] Last Admin: 01/17/18 00:47 Dose: 50 mg Hydromorphone HCl (Dilaudid Grain Picker 15 Mg In Ns 30 Ml) 0 mg IV ASDIRECTED PRN; Protocol PRN Reason: Pain Last Admin: 01/12/18 09:11 Dose: 0.2 mg Dextrose/Lactated Ringer's (Dextrose 5%-Lactated Ringers) 1,000 mls @ 100 mls/ hr IV ASDIRECTED [facility] Last Admin: 01/12/18 08:20 Dose: 100 mls/hr Cefazolin Sodium/Dextrose 1 gm (/ Premix) 50 mls @ 100 mls/hr IV ONETIME ONE Stop: 01/12/18 08:29 Last Admin: 01/12/18 08:55 Dose: 100 mls/hr Dextrose/Lactated Ringer's (Dextrose 5%-Lactated Ringers) 1,000 mls @ 100 mls/ hr IV ASDIRECTED [facility] Last Admin: 01/13/18 21:20 Dose: 100 mls/hr Potassium Acetate 20 meq/ (Sodium Chloride) 110 mls @ 55 mls/hr IV Q2H [facility] Stop: 01/12/18 17:59 Last Admin: 01/12/18 15:56 Dose: 55 mls/hr Cefazolin Sodium/Dextrose 1 gm (/ Premix) 50 mls @ 100 mls/hr IV Q8H [facility] Stop: 01/13/18 08:29 Last Admin: 01/13/18 08:20 Dose: 100 mls/hr Magnesium Sulfate 2 gm/ Premix 50 mls @ 25 mls/hr IV Q6H [facility] Stop: 01/16/18 04:59 Last Admin: 01/16/18 02:00 Dose: 25 mls/hr Diltiazem HCl 125 mg/ Dextrose (/Water) 125 mls @ 5 mls/hr IV TITRATE [facility]; Protocol Last Titration: 01/15/18 05:30 Dose: 0 mg/hr, 0 mls/hr Potassium Acetate 20 meq/Lidocaine HCl 2 ml/ Sodium Chloride 112 mls @ 56 mls/ hr IV Q2H [facility] Stop: 01/15/18 16:29 Last Admin: 01/15/18 17:16 Dose: 56 mls/hr Calcium Gluconate 11 gm/ (Sodium Chloride) 1,000 mls @ 50 mls/hr IV ONETIME ONE Stop: 01/17/18 15:34 Last Admin: 01/16/18 21:15 Dose: 50 mls/hr Calcium Gluconate 5 gm/ Sodium (Chloride) 550 mls @ 25 mls/hr IV Q22H [facility] Calcium Gluconate 5 gm/ Sodium (Chloride) 550 mls @ 12.5 mls/hr IV Q44H [facility] Stop: 01/17/18 22:00 Last Admin: 01/17/18 13:18 Dose: 12.5 mls/hr Methimazole (Methimazole) 30 mg PO ONETIME ONE Stop: 01/12/18 09:01 Last Admin: 01/12/18 08:44 Dose: 30 mg Metoprolol Tartrate (Lopressor) 50 mg PO BID [facility] Last Admin: 01/18/18 08:06 Dose: 50 mg Naloxone HCl (Narcan) 0.1 mg IV ASDIRECTED PRN PRN Reason: decreased respiratory rate Neostigmine Methylsulfate (Neostigmine) Confirm Administered Dose 5 mg .ROUTE .STK-MED ONE Stop: 01/12/18 07:10 Ondansetron HCl (Zofran) Confirm Administered Dose 4 mg .ROUTE .STK-MED ONE Stop: 01/12/18 07:10 Propofol (Diprivan 20 Ml) Confirm Administered Dose 200 mg .ROUTE .STK-MED ONE Stop: 01/12/18 07:10 Rocuronium Roundup (Zemuron) Confirm Administered Dose 50 mg .ROUTE .STK-MED ONE Stop: 01/12/18 07:10 Succinylcholine Chloride (Quelicin) Confirm Administered Dose 200 mg .ROUTE .STK -MED ONE Stop: 01/12/18 07:10 - Exam General: Alert, Oriented HEENT: Pupils Equal, Pupils Reactive, EOMI, Mucous Membr. Moist/[place] Neck: Supple Lungs: Clear to Auscultation, Normal Respiratory Effort Cardiovascular: Regular Rate, Regular Rhythm, Bradycardia GI/Abdominal Exam: Normal Bowel Sounds, Soft, Non-Tender, No Organomegaly, No Distention, No Abnormal Bruit, No Mass, Pelvis Stable Peripheral Pulses: 1+: Radial (L), Radial (R) Skin: Warm, Dry, Intact Wound/Incisions: Healing Well - Problem List Review Problem List Initiated/Reviewed/Updated: Yes - Assessment Assessment:: assessment/plan: #1. Status post thyroidectomy. secondary to hyperthyroidism #2. Bradycardia. I have stopped the beta cora. She's been on the calcium channel cardiac exam for a number of years and was recently started on metoprolol Tartuffepast thank you. We will watch her heart rate and blood pressure closely. depending on the heart rate I may restart the metoprolol at a lower dose pill and 50 mg was too much causing bradycardia which caused her symptoms morning. #3. History Atrial Fibrillation. She goes in and out of sinus rhythm. Her blood pressure was 135/57.
[2018-01-18] MEDS: Pantoprazole 40 MG Tab.CR PO SCH ×2 (15:21→15:46)
[2018-01-18] MEDS: Aluminum Hydroxide/Magnesium Hydroxide/Simethicone Susp 30 ML Cup PO SCH ×2 (18:51→23:30)
[2018-01-18] MEDS ORDERED: Diltiazem 180 MG Cap.CD PO SCH (21:00)
[2018-01-19] MEDS: Aluminum Hydroxide/Magnesium Hydroxide/Simethicone Susp 30 ML Cup PO SCH ×2 (03:37→07:14)
[2018-01-19] MEDS: Calcium Carbonate 500 MG Tab.Chew PO SCH (03:37)
[2018-01-19] MEDS: Magnesium Sulfate/Water 2 GM in Premix Bag 1 BAG IV SCH (06:01)
[2018-01-19] MEDS: predniSONE 1 MG Tab PO SCH (07:14)
--- NOTE | 2018-01-19 08:49 | DISCH ---
ADMISSION DIAGNOSES: 1. Toxic goiter. 2. History of paroxysmal atrial tachycardia. 3. Sleep apnea. 4. Gastroesophageal reflux disease. 5. Prehypertension. DISCHARGE DIAGNOSES: 1. 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 Date of surgery, 01/12/2018. 2. Path report, microscopic papillary carcinoma. 3. Paroxysmal atrial fibrillation with rapid ventricular response, resolved. 4. Hypokalemia. 5. Low calcium, resolved. HISTORY: Barbara Garcia is a 77-year-old female with a goiter. After preoperative evaluation and discussion of possible risks and possible complications, she wished to proceed with surgical procedure. HOSPITAL COURSE: She had her surgery on 01/12/2018. There were no operative complications. On postoperative day #1, 01/13/2018, she was started on a regular diet, oral pain medication, and her magnesium was replaced. On 01/14/2018, she was afebrile. Calcium was 7. She was not symptomatic, but was started on Tums 2 tablets 4 times a day. On 01/14/2018, later in the day, she had an episode of atrial fibrillation with rapid ventricular response. She noted a sudden onset of palpitations, headache, neck stiffness, and anxiety after eating lunch. She had an irregular tachycardic pulse. She had a complete 12-lead EKG and was transferred to intensive care unit and had diltiazem infusion after diltiazem bolus. On 01/15/2018, potassium was 2.9 and phosphate 4.6. She converted back to a sinus rhythm with a degree of bradycardia. On 01/16/2018, she was transferred back up to second floor. Her calcium was low, and she was symptomatic. Her diltiazem was increased to 240. She was started on calcium citrate 500 mg every 6 hours, and vitamin D 50,000 t.i.d. Labs were rechecked twice throughout the day. On 01/17/2018, she was given Lasix IV. Vitamin D was decreased to 50,000 daily. IV calcium gluconate was given at 50 mL per hour and then decreased to 25 mL per hour. Solu-Medrol was discontinued, and she was changed to prednisone 2 mg oral. She was started on Citracal 3 times a day and hydrochlorothiazide 25 mg daily. On 01/18/2018, her calcium was 7.3, and she was having episodes of feeling like she was going to pass out. She was started on orthostatic, sitting, standing and lying blood pressures 4 times a day, given another dose of Lasix, and her diltiazem was decreased to 180 p.o. daily, which was her home dose. Later in the day, she was seen by Dr. Jose Narayan, her primary care provider. He did stop the beta cora, metoprolol, and she was feeling good. Lab values were improved, and she was able to be discharged to home on 01/19/2018. On 01/19/2018, hemoglobin was 12, sodium 139, potassium 3.7, calcium was 7.6, and phosphorus was 5.5. BNP was 513. Total protein 5.5 and albumin was 2.5. PHYSICAL EXAMINATION: GENERAL: Barbara Garcia is a 77-year-old female. VITAL SIGNS: Height is 5 feet 8.11 inches. Weight is 227 pounds. TPR is 98, 50, 16, and blood pressure 138/67. HEENT: Negative. NECK: Neck reveals a well-healed, Steri-Stripped, thyroidectomy incision. Voice is clear and strong. HEART: Regular rate and rhythm. LUNGS: Clear. EXTREMITIES: Without peripheral edema. DISPOSITION: Discharged to home. CONDITION: Stable and improving. FOLLOWUP: Followup appointment with Rinku Andrade MD, at 11 a.m. She is to come at 10:30 a.m. and have labs checked; a BMP, magnesium, phosphorus, BNP, and TSH. DISCHARGE MEDICATIONS: Home Medications; aluminum hydroxide/magnesium hydroxide/simethicone (Mag-Al Plus) 16 mL oral twice a day. One bottle was given. She is to resume her home medications of; 1. Eliquis 5 mg twice daily. 2. Calcium carbonate 1500 mg oral daily. 3. Diltiazem 180 mg oral at bedtime. 4. Magnesium 30 mg oral daily. 5. Multivitamin one tablet oral daily. 6. Omeprazole 20 mg oral daily. 7. Vitamin B complex one tablet oral daily. Discontinue taking the metoprolol. DISCHARGE DIET: Usual diet as tolerated. Drink 8 to 10 glasses of water a day. ACTIVITY: As tolerated. No lifting greater than 10 pounds for 6 weeks. Other activity, walk short distance inside your house about 6 times a day. Driving, do not drive for 2 weeks. Shower/bathing, may shower. DISCHARGE INSTRUCTIONS: Notify provider if any fever, increased pain, swelling, or redness. Keep site clean and dry.
[2018-01-19] MEDS: Hydrochlorothiazide 25 MG Tab PO SCH (08:53)
[2018-01-19] MEDS: Apixaban 5 MG Tab PO SCH (08:54)
[2018-01-19] MEDS: Aspirin 81 MG Tab.EC PO SCH (08:54)
--- NOTE | 2018-01-23 08:13 | OR ---
DATE OF PROCEDURE: 01/12/2018 PREOPERATIVE DIAGNOSIS: Diffuse toxic goiter. POSTOPERATIVE DIAGNOSIS: Diffuse toxic goiter. PROCEDURE PERFORMED: Left total thyroid lobectomy, isthmusectomy and right subtotal thyroid lobectomy (18294). ANESTHESIA: General. ASSISTANTS: 1. Barbi Bolden PA-C. 2. PRICE Aguilar. INDICATION FOR PROCEDURE: This is a 77-year-old presenting with a picture of diffuse toxic goiter. This appears to be contributing to problems with recurrent episodes of atrial fibrillation. The plan is to proceed with either total or subtotal thyroidectomy, depending on operative findings. Potential risks of the procedure including bleeding, infection, the possibility there might be an occult malignancy present, injury to the parathyroid glands, resulting in either transient or long-term hypoparathyroidism requiring large doses of calcium and vitamin D, possibility of injury to the recurrent laryngeal nerves, and possibility of cardiopulmonary, septic, or hemorrhagic complications leading to were discussed, and the patient wishes to proceed. The patient is presently well beta-blocked and also received her diltiazem last night for rate control, should she develop atrial fibrillation, and the patient will be given perioperative hydrocortisone to limit any inflammatory reaction that might likewise prompt the atrial fibrillation. DESCRIPTION OF PROCEDURE: The patient was taken to the operating room, and after general endotracheal anesthesia was induced, a roll was placed under the left shoulder, and the upper chest and neck area was prepped and draped. A standard transverse collar incision was made and carried down through the skin and subcutaneous tissue and through the platysmal layers. Subplatysmal flaps were raised superiorly and inferiorly, and initially the strap muscles were divided and in the midline. Attention was taken initially to the left thyroid lobe. The middle and inferior thyroid veins were initially taken down. This allowed somewhat of a medial mobilization of the gland to allow takedown of the superior thyroid artery. All of this dissection was done with a SonoSurg type instrument. This then allowed medial mobilization of the thyroid gland. The branches of the inferior thyroid artery were then taken flush with the thyroid capsule and reflected off, thus in the process reflecting parathyroid glands, which were identifiable and maintaining their blood supply. As one approached the area of the ligament of Hernandez, dissection was somewhat difficult due to quite a bit of dissection. The isthmus was then divided at the junction of the right side of the isthmus and right thyroid lobe and the tracheal attachment to the isthmus, and then the remaining tracheal attachments to the left thyroid lobe were taken down and the procedure then concluded. The recurrent laryngeal nerve was identified and was found to be intact. On the right side, there was a little bit more in the way of edema and enlargement of that lobe. An identical dissection was completed, other than, because of the relatively difficult dissection in the area of the ligament of Hernandez on the left side, a small patch, perhaps the size of a standard pencil eraser, of thyroid tissue was left in that area, so as not to potentially traumatize both recurrent laryngeal nerves simultaneously. The parathyroid glands on this side likewise were identified and appeared to have maintained adequate blood supply. The area was inspected, and no problems were noted in terms of bleeding. Strap muscles were then approximated with 3-0 Vicryl stitch, the platysmal layers with 4-0 Vicryl stitch, and the skin with 5-0 Vicryl subcuticular stitch. Dressing was applied. The patient was taken to the recovery room in satisfactory condition. Physician college sports assistant, Barbi Bolden, played an essential role in assisting in this case, helping to position the patient, retract structures as needed, as well as suturing and cutting sutures when indicated. Her presence improved patient safety and decreased the operative time. Rinku Andrade MD /[id number]
== END 2018-01-19 10:24 | disposition home or self-care (01) | DRG 830 ==
LOC: JP.SDS 06:03 → JP.MS 06:03 → EDSTATUS 08:45 → JP.2SS 10:45 → JP.ICU 01-14 14:00 → JP.MS 01-15 10:15
PROVIDERS: ADMIT Surgery; ATTEND Surgery
PROC: 0GTG0ZZ Resection of Left Thyroid Gland Lobe, Open Approach (ICD-10-PCS; principal; 2018-01-12)
PROC: 0GBH0ZZ Excision of Right Thyroid Gland Lobe, Open Approach (ICD-10-PCS; 2018-01-12)
PROC: 0GTJ0ZZ Resection of Thyroid Gland Isthmus, Open Approach (ICD-10-PCS; 2018-01-12)
DX: C80.1 Malignant (primary) neoplasm, unspecified (principal); E05.20 Thyrotoxicosis with toxic multinodular goiter without thyrotoxic crisis or storm; R00.1 Bradycardia, unspecified; E89.0 Postprocedural hypothyroidism; E83.51 Hypocalcemia; E87.6 Hypokalemia; I10 Essential (primary) hypertension; I48.0 Paroxysmal atrial fibrillation; Z79.01 Long term (current) use of anticoagulants; Z86.73 Personal history of transient ischemic attack (TIA), and cerebral infarction without residual deficits; M19.90 Unspecified osteoarthritis, unspecified site; K21.9 Gastro-esophageal reflux disease without esophagitis; Z86.718 Personal history of other venous thrombosis and embolism; G47.30 Sleep apnea, unspecified; H91.90 Unspecified hearing loss, unspecified ear; H54.7 Unspecified visual loss; Z96.651 Presence of right artificial knee joint
CPT/HCPCS: 36415; 80048; 80053; 82306; 82310; 82340; 83735; 83880; 84100; 85027; 88307; 93005; 94762; A9270-GY; J0330; J0610; J0690; J1100; J1170; J1720; J1940; J2405; J2704; J2710; J3010; J3475; J3490; J7030; J7040; J7042; J7060